=== PATIENT | male | born 1975 | race Hispanic/Latino ===

== ENCOUNTER 2023-11-01 08:36 | Outpatient (CLI) | payer OTHER, SELFPAY ==
--- NOTE | ~2023-11-01 | XR_ITS ---
EXAMINATION: CYSTOGRAM DATE: 11/01/2023 09:05 INDICATION: Bladder mass post resection TECHNIQUE: Initial cnc set up operator radiograph of the pelvis was performed. There was retrograde administration of Omnipaque 350 mixed with saline contrast into patient's existing Johns catheter. 16 fluoroscopic images of the pelvis were obtained including a postvoid image. Fluoroscopy exposure time was 0.3 dagmar rossana. Total DAP was 9.773 Gycm^2 FINDINGS: Avionics Safety Inspector image demonstrates a few phleboliths in the left hemipelvis. Bowel gas pattern is unremarkable. There is normal filling of the bladder with smooth mucosal surface. No extraluminal contrast extrava sation or vesicoureteral reflux. Bones are unremarkable. IMPRESSION: 1. Unremarkable cystogram with no bladder leak. Reviewed, dictated and finalized at location A. [facility]
== END 2023-11-01 08:37 | disposition home or self-care (01) ==
LOC: ANHIMG 08:43
PROVIDERS: Visit Provider Urology
DX: N32.89 Other specified disorders of bladder (principal)
CPT/HCPCS: 51600; 74430; Q9967